=== PATIENT | female | born 1955 | race Caucasian/White ===

== ENCOUNTER → 2016-10-13 | Day surgery (SDC) | payer OTHER ==
[~2016-10-13] VITALS: Ht 170.2 cm; Wt 68.0 kg
[~2016-10-13] MED LIST: PRISTIQ ER25 MG PO; SYNTHROID88 MCG PO
--- NOTE | 2016-10-14 11:41 | Operative Report ---
Operative/Inv Procedure Report Surgery Date: 10/13/16 Name of Procedure: Exam under anesthesia hysteroscopy D&C planned resection of endometrial polyp, using myosure device Pre-Operative Diagnosis: Endometrial polyp Post-Operative Diagnosis: 2 endometrial polyps seen and fully removed, uterine fundal septum noted Estimated Blood Loss: less than 30 ML Surgeon/Housing Court Judge: ABELARDO RODAS,MOUNA Ward Anesthesia: laryngeal mask airway Monitors: EKG electrode, blood pressure cuff, pulse oximeter IV Fluids: 500 ML crystalloid Implants: None Urine Output: Not measured, no catheterization Drains: None Specimens: 1 ECC, #2 endometrial curettage and endometrial polyps Complications: None Condition: Good Operative Indication: 61-year-old woman with thickened endometrium and hydro sonogram revealed endometrial polyp Operative/Procedure Note Note: Patient was brought to the OR and placed in the OR table in the dorsal supine position. Timeout was discussed by the team and agreed upon. Preoperative antibiotics were not required for this procedure. Pneumatic compression boots were placed on her lower extremities. An IV sedation and placement of LMA with deeper anesthesia, were utilized for this procedure. After good level of sedation, patient was then placed in dorsal lithotomy position, utilizing candycane stirrups, with pneumatic compression boots on her lower extremities. Examination under anesthesia showed are symmetric top normal size uterus, with the adnexa nonpalpable. Patient was prepped draped in usual sterile fashion. Side arm speculum was placed in the vagina and the cervix was visualized. Single-tooth tenaculum placed on the anterior lip of the cervix. Endocervical curettage was undertaken and then the specimen was separately submitted. Her cervix carefully dilated to #6 Hegar dilator. The hysteroscope was introduced into the endocervical canal, and was advanced through the endocervical canal into the uterine cavity with direct visualization. Hydrodistention was maintained at the level of her mean arterial pressure. Cavity was visualized easily with the hysteroscope, and both tubal ostia were seen. Fundal septum was noted. 2 low segment endometrial polyps were noted. The myosure resection devise was introduced through the hysteroscope and was utilized to resect both of the polyps. The same resection device was used to sample the endometrium of the anterior and posterior uterine wall. Fundal septum had no pathology associated with it. At the completion the procedure, both endometrial polyps had been completely resected, and adequate sampling was undertaken of the anterior and posterior uterine burch of the endometrium. No evidence of injury or perforation to the uterine wall was noted. All instruments removed from the vagina. Good hemostasis was observed. Separate pathologic specimens #1 endocervical curettage and #2 combined endometrial curettage and endometrial polyps, were submitted to the laboratory. Patient was returned to the dorsal supine position at the completion the procedure and then awakened. The LMA was carefully removed from her oropharynx. At the completion the procedure, the sponge, instrument, and Telfa counts were correct 2. Postprocedure vaginal exam showed no retained sponges or Telfa pads. Patient was taken to recovery room good condition. Findings: Exam under anesthesia showed a top normal sized symmetric uterus. Evaluation of the endometrial cavity with the hysteroscope showed fundal septum and 2 low segment endometrial polyps. Both tubal ostia were easily seen. Polyps were completely resected and the uterine endometrial burch anteriorly and posteriorly were adequately sampled with the Myosure resection device. No injury to the uterus was noted. Good hemostasis was observed throughout the procedure and postoperatively Discharge Disposition: PACU CC: ABELARDO RODAS,MOUNA Ward
== END ==
LOC: STS 02:01
DX: N84.0 Polyp of corpus uteri (principal); R93.8 Abnormal findings on diagnostic imaging of other specified body structures; E03.9 Hypothyroidism, unspecified; K58.9 Irritable bowel syndrome, unspecified; K21.9 Gastro-esophageal reflux disease without esophagitis
CPT/HCPCS: 88305; J0131; J2250